=== PATIENT | female | born 1950 | race Caucasian/White ===

== ENCOUNTER 2019-05-25 09:22 | Emergency (ER) | payer MEDICARE, OTHER ==
[~2019-05-25] VITALS: Ht 154.9 cm; Wt 61.4 kg
[~2019-05-25 09:22] MED LIST: ALBU6.7H IH; DIVA500T52 PO; OLAN15TA5 PO; RAMI2.5T PO
[2019-05-25] MEDS ORDERED: LISI-661 PO (09:39)
[2019-05-25] MEDS ORDERED: METO50 PO (09:39)
[2019-05-25] MEDS ORDERED: CLOZ100 PO (09:39)
[2019-05-25] MEDS ORDERED: LORA1TAB3 PO (09:39)
[2019-05-25] MEDS ORDERED: OMEP20 PO (09:39)
[2019-05-25] MEDS ORDERED: AMLO10TA7 PO (09:39)
[2019-05-25] MEDS ORDERED: SODIUM CHLORIDE 0.9% 1,000 ML IV ONE (09:48)
[2019-05-25] MEDS ORDERED: ONDANSETRON HCL 4 MG/2 ML VIAL IVP ONE (10:00)
[2019-05-25 10:35] LABS: BASOPHILS % (AUTO) 0.4 % (0.0-2.0); EOSINOPHILS % (AUTO) 0.4 % (1.0-6.0); HEMATOCRIT 31.9 % (36-46); HEMOGLOBIN 10.7 g/dL (12.0-16.0); LYMPHOCYTES # (AUTO) 0.7 K/uL (1.0-4.8); LYMPHOCYTES % (AUTO) 11.6 % (22.0-44.0); MEAN CORPUSCULAR HGB CONC 33.5 G/dL (31.0-37.0); MEAN CORPUSCULAR VOLUME 84 fL (80-100); MONOCYTES # (AUTO) 0.6 K/uL (0.1-1.0); MONOCYTES % (AUTO) 10.5 % (2.0-9.0); NEUTROPHILS # (AUTO) 4.6 K/uL (1.8-7.7); NEUTROPHILS % (AUTO) 77.1 % (40.0-70.0); PLATELET COUNT (AUTO) 151 K/uL (150-450); RED BLOOD CELL COUNT(AUTO) 3.81 MIL/uL (4.00-5.20); RED CELL DISTRIBUTION WIDTH 13.7 % (11.5-14.5)
[2019-05-25 11:19] LABS: CREATININE 1.02 mg/dL (0.60-1.30); POTASSIUM 3.6 mmol/L (3.5-5.1)
[2019-05-25 11:20] LABS: APPEARANCE,URINE CLEAR (CLEAR); BILIRUBIN,URINE NEGATIVE (NEGATIVE); GLUCOSE, URINE (UA) NEGATIVE (NEGATIVE); KETONES,URINE NEGATIVE (NEGATIVE); LEUKOCYTE ESTERASE ,URINE NEGATIVE (NEGATIVE); NITRATE,URINE NEGATIVE (NEGATIVE); OCCULT BLOOD,URINE SMALL (NEGATIVE); PROTEIN,URINE NEGATIVE (NEGATIVE); UROBILINOGEN,URINE 0.2 mg/dL (<=1.0)
[2019-05-25 11:25] LABS: ALBUMIN 3.3 g/dL (3.4-5.0); BILIRUBIN,TOTAL 0.2 mg/dL (0.1-1.0); TOTAL PROTEIN, SERUM 7.8 g/dL (6.4-8.2)
[2019-05-25 11:26] LABS: AMPHET/METH SCREEN,URINE NEGATIVE (NEGATIVE); BARBITURATE SCREEN, URINE NEGATIVE (NEGATIVE); BENZODIAZEPINES SCREEN,URINE NEGATIVE (NEGATIVE); CANNABINOID SCREEN,URINE NEGATIVE (NEGATIVE); COCAINE SCREEN,URINE NEGATIVE (NEGATIVE); METHADONE SCREEN, URINE NEGATIVE (NEGATIVE); OPIATE SCREEN,URINE NEGATIVE (NEGATIVE); PHENCYCLIDINE SCREEN,URINE NEGATIVE (NEGATIVE)
[2019-05-25 11:43] LABS: WBC,URINE 0-2 /HPF (0-5)
[2019-05-25 11:45] LABS: BACTERIA,URINE Moderate /HPF (None Seen); SQUAMOUS EPITHELIAL CELL,UR Many /LPF (None Seen)
[2019-05-25 13:15] VITALS: BP 132/70
== END 2019-05-25 13:15 | disposition home or self-care (01) ==
LOC: EMS 09:22
DX: R19.7 Diarrhea, unspecified (principal); R53.1 Weakness; F41.9 Anxiety disorder, unspecified; K21.9 Gastro-esophageal reflux disease without esophagitis; I10 Essential (primary) hypertension; F20.9 Schizophrenia, unspecified; Z79.899 Other long term (current) drug therapy
CPT/HCPCS: 36415; 80053; 80307; 81001; 83690; 85025; 87086; 96361; 96374; 99283; J2405; J7030

== ENCOUNTER 2020-07-13 20:38 | Emergency (ER) | payer MEDICARE, OTHER ==
[~2020-07-13] VITALS: Ht 154.9 cm; Wt 70.5 kg
[~2020-07-13 20:38] MED LIST changes: -ALBU6.7H IH; +AMLO-258 PO; +CLOZ100T32 PO; -DIVA500T52 PO; +LISI-661 PO; +LORA-1000 PO; +METO50 PO; -OLAN15TA5 PO; +OMEP20 PO; -RAMI2.5T PO
[2020-07-13] MEDS ORDERED: MOM30 PO (21:17)
[2020-07-13] MEDS ORDERED: IBUP-2759 PO (21:17)
[2020-07-13] MEDS ORDERED: DOCU-350 PO (21:17)
[2020-07-13] MEDS ORDERED: PANT-31 PO (21:17)
[2020-07-13] MEDS ORDERED: MULT-1133 PO (21:17)
[2020-07-13] MEDS ORDERED: POLY17PO47 PO (21:17)
[2020-07-13] MEDS ORDERED: BISA-151 PO (21:17)
[2020-07-13] MEDS ORDERED: MELA5TAB3 PO (21:17)
[2020-07-13] MEDS ORDERED: ASPI-728 PO (21:17)
[2020-07-13] MEDS ORDERED: SENN8.8S6 PO (21:17)
[2020-07-13] MEDS ORDERED: MACR100 PO (21:17)
[2020-07-13 21:40] LABS: COVID AG,FIA SOURCE NASOPHARYNGEAL
[2020-07-13 21:44] LABS: BASOPHILS % (AUTO) 0.1 % (0.0-2.0); EOSINOPHILS % (AUTO) 0.1 % (1.0-6.0); HEMATOCRIT 32.4 % (36-46); HEMOGLOBIN 10.9 g/dL (12.0-16.0); LYMPHOCYTES # (AUTO) 0.6 K/uL (1.0-4.8); LYMPHOCYTES % (AUTO) 5.6 % (22.0-44.0); MEAN CORPUSCULAR HEMOGLOBIN 28.5 pg (26.0-34.0); MEAN CORPUSCULAR HGB CONC 33.7 G/dL (31.0-37.0); MEAN CORPUSCULAR VOLUME 85 fL (80-100); MONOCYTES # (AUTO) 1.4 K/uL (0.1-1.0); NEUTROPHILS % (AUTO) 80.2 % (40.0-70.0); PLATELET COUNT (AUTO) 141 K/uL (150-450); RED BLOOD CELL COUNT(AUTO) 3.84 MIL/uL (4.00-5.20); RED CELL DISTRIBUTION WIDTH 13.9 % (11.5-14.5)
[2020-07-13 21:55] LABS: APPEARANCE,URINE CLOUDY (CLEAR); BILIRUBIN,URINE NEGATIVE (NEGATIVE); GLUCOSE, URINE (UA) NEGATIVE (NEGATIVE); KETONES,URINE NEGATIVE (NEGATIVE); LEUKOCYTE ESTERASE ,URINE NEGATIVE (NEGATIVE); NITRATE,URINE NEGATIVE (NEGATIVE); OCCULT BLOOD,URINE MODERATE (NEGATIVE); PROTEIN,URINE NEGATIVE (NEGATIVE); UROBILINOGEN,URINE 0.2 mg/dL (<=1.0)
[2020-07-13 22:02] LABS: LACTIC ACID 0.7 mmol/L (0.4-2.0)
[2020-07-13 22:09] LABS: AMPHET/METH SCREEN,URINE NEGATIVE (NEGATIVE); BARBITURATE SCREEN, URINE NEGATIVE (NEGATIVE); BENZODIAZEPINES SCREEN,URINE NEGATIVE (NEGATIVE); CANNABINOID SCREEN,URINE NEGATIVE (NEGATIVE); COCAINE SCREEN,URINE NEGATIVE (NEGATIVE); METHADONE SCREEN, URINE NEGATIVE (NEGATIVE); OPIATE SCREEN,URINE NEGATIVE (NEGATIVE)
[2020-07-13 22:17] LABS: PHENCYCLIDINE SCREEN,URINE NEGATIVE (NEGATIVE)
[2020-07-13 22:28] LABS: BACTERIA,URINE Many /HPF (None Seen); RBC,URINE 0-2 /HPF (0-2); SQUAMOUS EPITHELIAL CELL,UR Few /LPF (None Seen); WBC,URINE 0-2 /HPF (0-5)
[2020-07-13 23:03] LABS: ANION GAP 13 mmol/L (8-16); CALCIUM, TOTAL 9.1 mg/dL (8.8-10.5); CARBON DIOXIDE 22 mmol/L (22-29); CHLORIDE 99 mmol/L (98-107); CREATININE 1.02 mg/dL (0.60-1.30); GLOMERULAR FILTR. RATE CALC 53 mL/min (>60); GLUCOSE,RANDOM 149 mg/dL (70-110); POTASSIUM 3.9 mmol/L (3.5-5.1); SODIUM SERUM 134 mmol/L (136-145); UREA NITROGEN, BLOOD 24 mg/dL (7-18)
[2020-07-13 23:08] LABS: ALANINE AMINOTRANSFERASE 31 U/L (12-78); ALKALINE PHOSPHATASE 89 U/L (46-116); ASPARTATE AMINOTRANSFERASE 22 U/L (15-37); BILIRUBIN,TOTAL 0.6 mg/dL (0.1-1.0); TOTAL PROTEIN, SERUM 7.3 g/dL (6.4-8.2)
[2020-07-14] MEDS ORDERED: CEPHALEXIN MONOHYDRATE 500 MG CAPSULE PO ONE
[2020-07-14 00:35] VITALS: BP 123/52
== END 2020-07-14 00:54 | disposition home or self-care (01) ==
LOC: EMS 20:38
DX: R82.71 Bacteriuria (principal); R53.1 Weakness; R05 Cough; F41.9 Anxiety disorder, unspecified; K21.9 Gastro-esophageal reflux disease without esophagitis; I10 Essential (primary) hypertension; F20.9 Schizophrenia, unspecified; Z20.828 Contact with and (suspected) exposure to other viral communicable diseases; Z79.899 Other long term (current) drug therapy
CPT/HCPCS: 36415; 71045; 80053; 80307; 81001; 83605; 84484; 85025; 87040; 87077; 87086; 87426; 93005; 99285; G0480; U0003

== ENCOUNTER 2021-10-28 10:22 | Emergency (ER) | payer MEDICARE, OTHER ==
[~2021-10-28] VITALS: Ht 154.9 cm; Wt 59.1 kg
[~2021-10-28 10:22] MED LIST changes: +ASPI-1450 PO; +BISA-151 PO; +DOCU-350 PO; +IBUP-2759 PO; -LISI-661 PO; +LISI-893 PO; +MACR100 PO; +MELA5TAB40 PO; +MOM30 PO; +MULT-1133 PO; +PANT-31 PO; +POLY17PO47 PO; +SENN8.8S18 PO
[2021-10-28 10:51] VITALS: BP 106/43
[2021-10-28] MEDS ORDERED: ACETAMINOPHEN 500 MG TABLET PO ONE (13:45)
[2021-10-28] MEDS ORDERED: CefTRIAXone SODIUM 1 GM/VIAL IM ONE (13:45)
[2021-10-28] MEDS ORDERED: LIDOCAINE/PF 1% 2 ML VIAL IM ONE (13:45)
[2021-10-28 13:48] LABS: COVID AG,FIA SOURCE NASOPHARYNGEAL
== END 2021-10-28 14:16 | disposition home or self-care (01) ==
LOC: EMS 10:28
DX: U07.1 COVID-19 (principal); J12.82 Pneumonia due to coronavirus disease 2019; I10 Essential (primary) hypertension; F31.9 Bipolar disorder, unspecified; F20.9 Schizophrenia, unspecified; Z79.899 Other long term (current) drug therapy
CPT/HCPCS: 71046; 87426; 96372; 99284; C9803; J0696; J3490

== ENCOUNTER 2022-01-22 08:01 | Inpatient (IN) | payer MEDICARE, OTHER ==
[~2022-01-22] VITALS: Ht 160 cm; Wt 53.4 kg
[~2022-01-22 08:01] MED LIST changes: -DOCU-350 PO; +DOCU250C99 PO; -MACR100 PO; +MAGN-160 PO; -MOM30 PO; +NITR-75 PO
[2022-01-22 09:27] LABS: BASOPHILS % (AUTO) 0.5 % (0.0-2.0); EOSINOPHILS % (AUTO) 0.9 % (1.0-6.0); HEMOGLOBIN 8.7 g/dL (12.0-16.0); LYMPHOCYTES # (AUTO) 0.4 K/uL (1.0-4.8); LYMPHOCYTES % (AUTO) 4.5 % (22.0-44.0); MEAN CORPUSCULAR HEMOGLOBIN 23.8 pg (26.0-34.0); MEAN CORPUSCULAR HGB CONC 32.3 G/dL (31.0-37.0); MEAN CORPUSCULAR VOLUME 74 fL (80-100); MONOCYTES # (AUTO) 0.7 K/uL (0.1-1.0); MONOCYTES % (AUTO) 9.5 % (2.0-9.0); NEUTROPHILS # (AUTO) 6.6 K/uL (1.8-7.7); NEUTROPHILS % (AUTO) 84.6 % (40.0-70.0); PLATELET COUNT (AUTO) 284 K/uL (150-450); RED BLOOD CELL COUNT(AUTO) 3.65 MIL/uL (4.00-5.20); RED CELL DISTRIBUTION WIDTH 15.2 % (11.5-14.5)
[2022-01-22 09:37] LABS: CALCIUM, TOTAL 8.6 mg/dL (8.8-10.5); POTASSIUM 3.2 mmol/L (3.5-5.1)
[2022-01-22 09:43] LABS: ALBUMIN 2.1 g/dL (3.4-5.0); BILIRUBIN,TOTAL 0.3 mg/dL (0.1-1.0); TOTAL PROTEIN, SERUM 8.3 g/dL (6.4-8.2)
[2022-01-22 10:21] LABS: COVID AG,FIA SOURCE NASAL SWAB
[2022-01-22] MEDS ORDERED: POTASSIUM CHLORIDE 20 MEQ ER TABLET PO ONE ×2 (10:30→20:30)
[2022-01-22] MEDS ORDERED: ACETAMINOPHEN 500 MG TABLET PO ONE (10:45)
[2022-01-22 11:21] LABS: APPEARANCE,URINE HAZY (CLEAR); BILIRUBIN,URINE NEGATIVE (NEGATIVE); GLUCOSE, URINE (UA) NEGATIVE (NEGATIVE); KETONES,URINE NEGATIVE (NEGATIVE); LEUKOCYTE ESTERASE ,URINE SMALL (NEGATIVE); NITRATE,URINE NEGATIVE (NEGATIVE); OCCULT BLOOD,URINE TRACE (NEGATIVE); PH,URINE 6.5 (5.0-8.0); PROTEIN,URINE 30-70 mg/dL (NEGATIVE); SPECIFIC GRAVITIY, URINE 1.015 (1.003-1.030); UROBILINOGEN,URINE <=1.0 mg/dL (<=1.0)
[2022-01-22 11:27] LABS: BACTERIA,URINE Many /HPF (None Seen); FINE GRANULAR CASTS,URINE 0-2 /LPF (None Seen)
[2022-01-22] MEDS ORDERED: CefTRIAXone 1 GM/DEXTROSE 50 ML IV ONE (11:45)
[2022-01-22] MEDS ORDERED: AZITHROMYCIN 500 MG/NS 250 ML IV ONE (11:45)
[2022-01-22] MEDS ORDERED: MAGNESIUM HYDROXIDE SUSPENSION 30 ML UDCUP PO PRN (15:00)
[2022-01-22] MEDS ORDERED: ALBUTEROL SULFATE 2.5 MG/0.5 ML NEB SOLUTION NEB PRN (15:00)
[2022-01-22] MEDS ORDERED: ZOLPIDEM TARTRATE 5 MG TABLET PO PRN (15:00)
[2022-01-22] MEDS ORDERED: MORPHINE SULFATE 2 MG/ML SYRINGE IVP PRN (15:00)
[2022-01-22] MEDS ORDERED: POLYETHYLENE GLYCOL 3350 17 GM PACKET PO PRN (15:00)
[2022-01-22] MEDS ORDERED: ACETAMINOPHEN 325 MG TABLET PO PRN (15:00)
[2022-01-22] MEDS ORDERED: BISACODYL 10 MG RECTAL RECTAL SUPPOSITORY PR PRN (15:00)
[2022-01-22] MEDS ORDERED: ONDANSETRON HCL 4 MG/2 ML VIAL IVP PRN (15:00)
[2022-01-22] MEDS ORDERED: IPRATROPIUM BROMIDE 0.5 MG/2.5 ML NEB SOLUTION NEB PRN (15:00)
[2022-01-22 16:15] VITALS: BP 147/59
[2022-01-22] MEDS: BENZONATATE 100 MG CAPSULE PO SCH ×2 (16:20→20:55)
[2022-01-22] MEDS: HEPARIN SODIUM,PORCINE 5,000 UNITS/ML VIAL SQ SCH ×2 (16:20→23:40)
[2022-01-22] MEDS ORDERED: PNEUMOCOCCAL VACCINE POLYVALENT 0.5 ML VIAL [PPSV23] IM. ONE (16:45)
[2022-01-22] MEDS: MethylPREDNISolone SOD SUCC 125 MG/2 ML VIAL IVP SCH ×2 (18:11→23:40)
[2022-01-22 19:54] VITALS: BP 121/52
[2022-01-22] MEDS: IPRATROPIUM BROMIDE 0.5 MG/2.5 ML NEB SOLUTION NEB SCH (20:00)
[2022-01-22] MEDS: ALBUTEROL SULFATE 2.5 MG/0.5 ML NEB SOLUTION NEB SCH (20:00)
[2022-01-22] MEDS: MELATONIN 5 MG TABLET PO SCH (20:54)
[2022-01-22] MEDS: GuaiFENesin SR 600 MG ER TABLET PO SCH (20:54)
[2022-01-22] MEDS: SENNA 187 MG TABLET PO SCH ×2 (20:54→20:58)
[2022-01-22] MEDS: DOCUSATE SODIUM 100 MG CAPSULE PO SCH (20:56)
[2022-01-23] MEDS: ALBUTEROL SULFATE 2.5 MG/0.5 ML NEB SOLUTION NEB SCH ×4 (02:00→19:29)
[2022-01-23] MEDS: IPRATROPIUM BROMIDE 0.5 MG/2.5 ML NEB SOLUTION NEB SCH ×4 (02:00→19:29)
[2022-01-23 04:30] VITALS: BP 136/60
[2022-01-23] MEDS: MethylPREDNISolone SOD SUCC 125 MG/2 ML VIAL IVP SCH ×4 (05:54→23:16)
[2022-01-23 08:00] VITALS: BP 195/75
[2022-01-23 08:13] LABS: ANION GAP 7 mmol/L (8-16); CALCIUM, TOTAL 8.9 mg/dL (8.8-10.5); CARBON DIOXIDE 25 mmol/L (22-29); CHLORIDE 102 mmol/L (98-107); CREATININE 0.81 mg/dL (0.60-1.30); GLUCOSE,RANDOM 163 mg/dL (70-110); POTASSIUM 4.1 mmol/L (3.5-5.1); SODIUM SERUM 134 mmol/L (136-145); UREA NITROGEN, BLOOD 17 mg/dL (7-18)
[2022-01-23 08:15] LABS: BASOPHILS % (AUTO) 0.2 % (0.0-2.0); EOSINOPHILS % (AUTO) 0 % (1.0-6.0); HEMATOCRIT 30.9 % (36-46); HEMOGLOBIN 9.5 g/dL (12.0-16.0); LYMPHOCYTES # (AUTO) 0.3 K/uL (1.0-4.8); LYMPHOCYTES % (AUTO) 5.1 % (22.0-44.0); MEAN CORPUSCULAR HEMOGLOBIN 23.8 pg (26.0-34.0); MEAN CORPUSCULAR HGB CONC 30.8 G/dL (31.0-37.0); MEAN CORPUSCULAR VOLUME 77 fL (80-100); MONOCYTES # (AUTO) 0.1 K/uL (0.1-1.0); MONOCYTES % (AUTO) 1.4 % (2.0-9.0); NEUTROPHILS # (AUTO) 6.1 K/uL (1.8-7.7); PLATELET COUNT (AUTO) 255 K/uL (150-450)
[2022-01-23 08:17] LABS: GLOMERULAR FILTR. RATE CALC > 60 mL/min (>60)
[2022-01-23 08:20] LABS: NEUTROPHILS % (AUTO) 93.3 % (40.0-70.0)
[2022-01-23] MEDS: DOCUSATE SODIUM 100 MG CAPSULE PO SCH ×2 (08:32→20:54)
[2022-01-23] MEDS ORDERED: SODIUM CHLORIDE 0.9% 1,000 ML ONE (08:43)
[2022-01-23] MEDS ORDERED: LISINOPRIL 10 MG TABLET PO SCH (09:00)
[2022-01-23] MEDS: BENZONATATE 100 MG CAPSULE PO SCH ×3 (09:14→20:54)
[2022-01-23] MEDS: CefTRIAXone 1 GM/DEXTROSE 50 ML IV SCH (09:14)
[2022-01-23] MEDS: CloZAPine 100 MG TABLET PO SCH (09:14)
[2022-01-23] MEDS: ASPIRIN 81 MG CHEWABLE TABLET PO SCH (09:14)
[2022-01-23] MEDS: PANTOPRAZOLE SODIUM 40 MG DR TABLET PO SCH (09:14)
[2022-01-23] MEDS: AmLODIPine BESYLATE 10 MG TABLET PO SCH (09:15)
[2022-01-23] MEDS: HEPARIN SODIUM,PORCINE 5,000 UNITS/ML VIAL SQ SCH ×3 (09:15→23:16)
[2022-01-23] MEDS: METOPROLOL TARTRATE 50 MG TABLET PO SCH (09:15)
[2022-01-23] MEDS: GuaiFENesin SR 600 MG ER TABLET PO SCH ×2 (09:15→20:53)
[2022-01-23] MEDS: AZITHROMYCIN 500 MG/NS 250 ML IV SCH (10:22)
[2022-01-23 10:42] VITALS: BP 140/63
[2022-01-23] MEDS: HYDROCODONE/ACETAMINOPHEN 5-325 MG TABLET PO PRN ×2 (14:26→23:23)
[2022-01-23 16:04] VITALS: BP 148/66
[2022-01-23 20:28] VITALS: BP 133/74
[2022-01-23] MEDS: MELATONIN 5 MG TABLET PO SCH (20:53)
[2022-01-23] MEDS: SENNA 187 MG TABLET PO SCH (20:54)
[2022-01-23] MEDS: LORazepam 1 MG TABLET PO SCH (23:16)
[2022-01-24] MEDS: IPRATROPIUM BROMIDE 0.5 MG/2.5 ML NEB SOLUTION NEB SCH ×4 (02:00→20:00)
[2022-01-24] MEDS: ALBUTEROL SULFATE 2.5 MG/0.5 ML NEB SOLUTION NEB SCH ×4 (02:00→20:00)
[2022-01-24 04:39] VITALS: BP 159/90
[2022-01-24 06:11] LABS: BASOPHILS % (AUTO) 0.2 % (0.0-2.0); EOSINOPHILS % (AUTO) 0 % (1.0-6.0); HEMATOCRIT 27.3 % (36-46); HEMOGLOBIN 8.8 g/dL (12.0-16.0); LYMPHOCYTES # (AUTO) 0.4 K/uL (1.0-4.8); LYMPHOCYTES % (AUTO) 2.8 % (22.0-44.0); MEAN CORPUSCULAR HEMOGLOBIN 23.9 pg (26.0-34.0); MEAN CORPUSCULAR HGB CONC 32.1 G/dL (31.0-37.0); MEAN CORPUSCULAR VOLUME 74 fL (80-100); MONOCYTES # (AUTO) 0.3 K/uL (0.1-1.0); MONOCYTES % (AUTO) 2.2 % (2.0-9.0); PLATELET COUNT (AUTO) 325 K/uL (150-450); RED BLOOD CELL COUNT(AUTO) 3.67 MIL/uL (4.00-5.20)
[2022-01-24 06:17] LABS: NEUTROPHILS % (AUTO) 94.8 % (40.0-70.0)
[2022-01-24 06:27] LABS: ANION GAP 8 mmol/L (8-16); CALCIUM, TOTAL 8.9 mg/dL (8.8-10.5); CARBON DIOXIDE 26 mmol/L (22-29); CHLORIDE 104 mmol/L (98-107); CREATININE 0.89 mg/dL (0.60-1.30); GLUCOSE,RANDOM 161 mg/dL (70-110); POTASSIUM 4.3 mmol/L (3.5-5.1); SODIUM SERUM 138 mmol/L (136-145); UREA NITROGEN, BLOOD 16 mg/dL (7-18)
[2022-01-24 06:29] LABS: GLOMERULAR FILTR. RATE CALC > 60 mL/min (>60)
[2022-01-24] MEDS: MethylPREDNISolone SOD SUCC 125 MG/2 ML VIAL IVP SCH ×4 (06:29→23:12)
[2022-01-24] MEDS: CefTRIAXone 1 GM/DEXTROSE 50 ML IV SCH (08:04)
[2022-01-24 08:06] VITALS: BP 182/73
[2022-01-24] MEDS: ASPIRIN 81 MG CHEWABLE TABLET PO SCH (08:55)
[2022-01-24] MEDS: METOPROLOL TARTRATE 50 MG TABLET PO SCH (08:55)
[2022-01-24] MEDS: GuaiFENesin SR 600 MG ER TABLET PO SCH ×2 (08:55→20:35)
[2022-01-24] MEDS: BENZONATATE 100 MG CAPSULE PO SCH ×3 (08:56→21:31)
[2022-01-24] MEDS: LISINOPRIL 20 MG TABLET PO SCH (08:57)
[2022-01-24] MEDS: CloZAPine 100 MG TABLET PO SCH (08:58)
[2022-01-24] MEDS: DOCUSATE SODIUM 100 MG CAPSULE PO SCH ×2 (08:59→20:37)
[2022-01-24] MEDS: AmLODIPine BESYLATE 10 MG TABLET PO SCH (08:59)
[2022-01-24] MEDS: PANTOPRAZOLE SODIUM 40 MG DR TABLET PO SCH (09:00)
[2022-01-24] MEDS: HEPARIN SODIUM,PORCINE 5,000 UNITS/ML VIAL SQ SCH ×3 (09:01→23:16)
[2022-01-24] MEDS: AZITHROMYCIN 500 MG/NS 250 ML IV SCH (09:41)
[2022-01-24 12:21] LABS: ABG BASE EXCESS -0.6 mmol/L (-2.0-3.0); ABG CARBOXYHEMOGLOBIN 0.9 % (0.0-1.5); ABG HCO3 24.2 mmol/L (22.0-26.0); ABG METHEMOGLOBIN 0.3 % (0.0-1.5); ABG OXYGEN CONTENT 13.7 mL/dL (15.0-23.0); ABG OXYGEN SATURATION 94.4 % (95.0-98.0); ABG OXYHEMOGLOBIN 93.3 % (94.0-100.0); ABG PCO2 35 mmHg (35-45); ABG PH 7.449 (7.35-7.450); ABG TOTAL HEMOGLOBIN 10.4 G/dL (12.0-18.0); PO2, ARTERIAL BG 72.6 mmHg (75.0-83.0); SOURCE, BLOOD GAS ARTERIAL; TEMPERATURE, FAHRENHEIT, BG 98.1 FAHREN (96.0-98.6)
[2022-01-24 12:22] LABS: ABG A-A DIFF O2 35.9 mmHg (10-20.0); O2 DEVICE,BLOOD GAS ROOM AIR (ROOM AIR); SITE, BLOOD GAS RT RADIAL
[2022-01-24 16:14] VITALS: BP 178/79
[2022-01-24 19:47] VITALS: BP 144/70
[2022-01-24] MEDS: LORazepam 1 MG TABLET PO SCH (20:36)
[2022-01-24] MEDS: SENNA 187 MG TABLET PO SCH (20:37)
[2022-01-24] MEDS: MELATONIN 5 MG TABLET PO SCH (21:31)
[2022-01-25] MEDS: ALBUTEROL SULFATE 2.5 MG/0.5 ML NEB SOLUTION NEB SCH ×3 (02:00→13:59)
[2022-01-25] MEDS: IPRATROPIUM BROMIDE 0.5 MG/2.5 ML NEB SOLUTION NEB SCH ×3 (02:00→13:59)
[2022-01-25 04:35] VITALS: BP 157/80
[2022-01-25] MEDS: MethylPREDNISolone SOD SUCC 125 MG/2 ML VIAL IVP SCH (05:53)
[2022-01-25 06:33] LABS: BASOPHILS % (AUTO) 0.1 % (0.0-2.0); EOSINOPHILS % (AUTO) 0 % (1.0-6.0); HEMATOCRIT 28.5 % (36-46); LYMPHOCYTES # (AUTO) 0.5 K/uL (1.0-4.8); LYMPHOCYTES % (AUTO) 4.3 % (22.0-44.0); MEAN CORPUSCULAR HEMOGLOBIN 23.6 pg (26.0-34.0); MEAN CORPUSCULAR HGB CONC 31.6 G/dL (31.0-37.0); MEAN CORPUSCULAR VOLUME 75 fL (80-100); MONOCYTES # (AUTO) 0.5 K/uL (0.1-1.0); MONOCYTES % (AUTO) 3.7 % (2.0-9.0); NEUTROPHILS # (AUTO) 11.4 K/uL (1.8-7.7); PLATELET COUNT (AUTO) 288 K/uL (150-450); RED BLOOD CELL COUNT(AUTO) 3.81 MIL/uL (4.00-5.20); RED CELL DISTRIBUTION WIDTH 15.3 % (11.5-14.5)
[2022-01-25 06:41] LABS: NEUTROPHILS % (AUTO) 91.9 % (40.0-70.0)
[2022-01-25 06:46] LABS: ANION GAP 10 mmol/L (8-16); CALCIUM, TOTAL 8.8 mg/dL (8.8-10.5); CARBON DIOXIDE 27 mmol/L (22-29); CHLORIDE 102 mmol/L (98-107); CREATININE 0.86 mg/dL (0.60-1.30); GLOMERULAR FILTR. RATE CALC > 60 mL/min (>60); GLUCOSE,RANDOM 140 mg/dL (70-110); POTASSIUM 3.7 mmol/L (3.5-5.1); SODIUM SERUM 139 mmol/L (136-145); UREA NITROGEN, BLOOD 24 mg/dL (7-18)
[2022-01-25 07:35] VITALS: BP 160/76
[2022-01-25] MEDS: GuaiFENesin SR 600 MG ER TABLET PO SCH (08:37)
[2022-01-25] MEDS: PANTOPRAZOLE SODIUM 40 MG DR TABLET PO SCH (08:37)
[2022-01-25] MEDS: METOPROLOL TARTRATE 50 MG TABLET PO SCH (08:37)
[2022-01-25] MEDS: AmLODIPine BESYLATE 10 MG TABLET PO SCH (08:37)
[2022-01-25] MEDS: LISINOPRIL 20 MG TABLET PO SCH (08:37)
[2022-01-25] MEDS: CloZAPine 100 MG TABLET PO SCH (08:37)
[2022-01-25] MEDS: DOCUSATE SODIUM 100 MG CAPSULE PO SCH (08:37)
[2022-01-25] MEDS: BENZONATATE 100 MG CAPSULE PO SCH ×2 (08:37→15:07)
[2022-01-25] MEDS: ASPIRIN 81 MG CHEWABLE TABLET PO SCH (08:37)
[2022-01-25] MEDS: HEPARIN SODIUM,PORCINE 5,000 UNITS/ML VIAL SQ SCH ×2 (08:38→15:07)
[2022-01-25] MEDS: CefTRIAXone 1 GM/DEXTROSE 50 ML IV SCH (08:38)
[2022-01-25] MEDS ORDERED: PredniSONE 20 MG TABLET PO SCH (09:00)
[2022-01-25] MEDS: AZITHROMYCIN 500 MG/NS 250 ML IV SCH (09:37)
[2022-01-25] MEDS ORDERED: PRED-554 PO (09:56)
[2022-01-25] MEDS ORDERED: PRED-729 PO (09:56)
[2022-01-25] MEDS ORDERED: CEPH-558 PO (09:56)
[2022-01-25] MEDS ORDERED: IPRA4AER IH (09:56)
[2022-01-25] MEDS ORDERED: PRED-549 PO (09:56)
[2022-01-25 15:42] VITALS: BP 152/86
== END 2022-01-25 17:05 | disposition home health service (06) | DRG 191 ==
LOC: EMS 08:01 → 6N 14:58
PROVIDERS: ADMIT Internal Medicine; ATTEND Internal Medicine
DX: J44.1 Chronic obstructive pulmonary disease with (acute) exacerbation (principal); J98.11 Atelectasis; N39.0 Urinary tract infection, site not specified; I10 Essential (primary) hypertension; F20.9 Schizophrenia, unspecified; Z20.822 Contact with and (suspected) exposure to COVID-19; K21.9 Gastro-esophageal reflux disease without esophagitis; Z87.891 Personal history of nicotine dependence; Z79.899 Other long term (current) drug therapy; Z90.49 Acquired absence of other specified parts of digestive tract
CPT/HCPCS: 36600; 71045; 80048; 80053; 81001; 82805; 83880; 84132; 84484; 85025; 87040; 87086; 93005; 93306; 94640; 97116; 97162; 97530; 99285; J0456; J0696; J1644; J2270; J2930; J7030; Q9967; 36415-L1; 36415-TC; J7613